=== PATIENT | female | born 1975 | race American Indian/Alaskan Native ===

== ENCOUNTER 2016-11-18 15:18 | Emergency (ER) | payer OTHER ==
[2016-11-18 16:04] VITALS: BP 152/85
[2016-11-18 16:37] LABS: Basophils % (Auto) 1.2 % (0.0-1.8); Eosinophils % (Auto) 4.1 % (0.0-4.3); Hematocrit 39.4 % (30.3-42.9); Hemoglobin 12.7 gm/dl (10.1-14.3); Mean Corpuscular HGB Conc 32 % (30-34); Mean Corpuscular Hemoglobin 27 pg (28-32); Mean Corpuscular Volume 84 fl (79-97); Platelet Count 192 K/mm3 (140-440); Red Blood Count 4.71 M/mm3 (3.65-5.03); Red Cell Distribution Width 14.2 % (13.2-15.2); White Blood Count 8.7 K/mm3 (4.5-11.0)
[2016-11-18 16:51] LABS: Anion Gap 16 mmol/L; Blood Urea Nitrogen 12 mg/dL (7-17); Calcium 8.7 mg/dL (8.4-10.2); Carbon Dioxide 27 mmol/L (22-30); Chloride 103.9 mmol/L (98-107); Glucose 110 mg/dL (65-100); Potassium 4.1 mmol/L (3.6-5.0); Sodium 143 mmol/L (137-145)
[2016-11-19] MEDS ORDERED: MORPHINE IM ONE (02:13)
--- NOTE | 2016-11-19 02:23 | Emergency Department Report ---
HPI - General Chief Complaint: Vaginal Bleeding Time Seen by Provider: 11/19/16 02:01 - [facility] HPI: This is a 41-year-old Afro-Wallisian female presents to the emergency department with complaint of a three-day history of heavy menstrual bleeding and lower abdominal/pelvic cramping/pain. Patient has not taken anything for symptoms prior to presentation. She says that the cycle timing is regular but the amount of bleeding and intensity of her discomfort is not. She has a history of previous tubal ligation. 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 No recent travel or sick contacts at home. She denies any dysuria, back pain, fever, nausea or vomiting. ED Past Medical Hx - Past Medical History Previous Medical History?: Yes Additional medical history: thyroid - Surgical History Past Surgical History?: Yes Additional Surgical History: Tubaligation - Social History Smoking Status: Current Every Day Smoker Substance Use Type: Alcohol, Prescribed - Medications Home Medications: Home Medications Medication Instructions Recorded Confirmed Last Taken Type Levothyroxine [Synthroid] 200 mcg PO QAM 11/18/16 11/18/16 11/17/16 History Topiramate [Topamax] 25 mg PO DAILY 11/18/16 11/18/16 Unknown History metroNIDAZOLE [Flagyl] 500 mg PO Q12HR #14 tab 11/19/16 Unknown Rx ED Review of Systems ROS: Stated complaint: HEAVY BLEEDING Other details as noted in HPI Comment: All other systems reviewed and negative Constitutional: denies: chills, fever Eyes: denies: eye pain, eye discharge, vision change ENT: denies: ear pain, throat pain Respiratory: denies: cough, shortness of breath, wheezing Cardiovascular: denies: chest pain, palpitations Gastrointestinal: abdominal pain. denies: nausea, vomiting Genitourinary: other (vaginal bleeding). denies: urgency, dysuria, discharge Musculoskeletal: denies: back pain, joint swelling, arthralgia Skin: denies: rash, lesions Neurological: denies: headache, weakness, paresthesias Physical Exam - Physical Exam Vital Signs: Vital Signs 11/18/16 15:59 Temperature 98.7 F Pulse Rate 85 Respiratory 20 Rate Blood Pressure 152/85 O2 Sat by Pulse 99 Oximetry Physical Exam: GENERAL: The patient is well-developed well-nourished. HEENT: Normocephalic. Atraumatic. Extraocular motions are intact. Patient has moist mucous membranes. Pupils equal reactive to light bilaterally. NECK: Supple. Trachea is midline. CHEST/LUNGS: Clear to auscultation. There is no respiratory distress noted. HEART/CARDIOVASCULAR: Regular. There is no tachycardia. There is no gallop rub or murmur. ABDOMEN: Abdomen is soft, nontender. Unable to reproduce patient's lower abdominal and/or pelvic discomfort to palpation. Patient has normal bowel sounds. There is no abdominal distention. Morbidly obese habitus. SKIN: Skin is warm and dry. NEURO: The patient is awake, alert, and oriented. The patient is cooperative. The patient has no focal neurologic deficits. The patient has normal speech. MUSCULOSKELETAL: There is no tenderness or deformity. There is no limitation range of motion. There is no evidence of acute injury. : There is some maroon-colored blood seen throughout the vaginal vault. Due to the patient's habitus it is very difficult to visualize the cervix. ED Course Vital Signs 11/18/16 15:59 Temperature 98.7 F Pulse Rate 85 Respiratory 20 Rate Blood Pressure 152/85 O2 Sat by Pulse 99 Oximetry ED Medical Decision Making - Lab Data Result diagrams: 11/18/16 16:18 11/18/16 16:18 - Radiology Data Radiology results: report reviewed Transvaginal's ultrasound shows normal-appearing ovaries and uterus. - Medical Decision Making 41-year-old female presents to the emergency department with complaint of 3 day history of lower abdominal intense cramping and heavy vaginal bleeding during her menstrual cycle. Patient's labs have been unremarkable did not show any etiology of the patient's pain. A transvaginal ultrasound was done that does not show any abnormality to the uterus or ovaries. Attempted to do a pelvic examination but the patient's habitus only allowed me to see some blood within the vaginal vault. Patient was given a dose pain medication and is feeling improved. There was no anemia despite the patient's heavy bleeding. The patient is convinced that she has a bacterial vaginosis infection but I am unable to get a wet prep secondary to her habitus. Patient will be placed on some Flagyl and she will be given referrals for HYPOID GEAR GENERATOR for follow-up. She will return to the ER with any worsening of her symptoms or any acute distress. - Differential Diagnosis menorrhagia, dysfunctional uterine bleeding, BV, UTI Critical Care Time: No Critical care attestation.: If time is entered above; I have spent that time in minutes in the direct care of this critically ill patient, excluding procedure time. ED Disposition Clinical Impression: Dysfunctional uterine bleeding Menorrhagia Qualifiers: Menorrahagia type: with regular cycle Qualified Code(s): N92.0 - Excessive and frequent menstruation with regular cycle Disposition: DISCHARGED TO HOME OR SELFCARE Is pt being admited?: No Condition: Stable Instructions: Dysfunctional Uterine Bleeding (ED) Additional Instructions: Please follow-up with an HYPOID GEAR GENERATOR in the next few days. Return to the emergency department with any worsening of her symptoms or any acute distress. I prescribed use some Flagyl to take for your suspected bacterial vaginosis infection. This medication cannot be mixed with alcohol and any quantity or he will have nausea and vomiting. Prescriptions: metroNIDAZOLE [Flagyl] 500 mg PO Q12HR #14 tab Referrals: PRIMARY CAREMD [Primary Care Provider] - 3-5 Days ANDRÉS MAGUIRE MD [Staff Physician] - 3-5 Days ALISTAIR SCHMITZ MD [Staff Physician] - 3-5 Days Forms: Work/School Release Form(ED) Time of Disposition: 04:19
--- NOTE | 2016-11-19 03:27 | Ultrasound Report ---
FINAL REPORT PROCEDURE: US TRANSVAGINAL WITH DOPPLER TECHNIQUE: Real-time transvaginal sonography in multiple planes of the pelvis was performed with image documentation. Grayscale, color flow Doppler imaging and velocity spectral waveform analysis of the ovaries was employed (duplex imaging). CPT 97683 and 46500 HISTORY: Pelvic pain. Dysfunctional uterine bleeding. COMPARISON: No prior studies are available for comparison. FINDINGS: The uterus measures 10.3 x 5.4 x 6.8 centimeters. The endometrium measures 0.72 centimeters. The uterus shows no ultrasound abnormality. There are a few small nonspecific cysts in the cervix. Right ovary measures 3.3 x 1.3 x 1.9 centimeter. The left ovary measures 2.7 x 2.7 x 2.0 centimeter. Both ovaries show no ultrasound abnormality. There is no ultrasound evidence of free fluid in the pelvis. IMPRESSION: 1. The uterus and both ovaries demonstrate no ultrasound abnormality. 2. There are few small nonspecific cysts in the cervix.
--- NOTE | 2016-11-19 03:39 | Ultrasound Report ---
FINAL REPORT PROCEDURE: ULTRASOUND PELVIS TRANSABDOMINAL WITH DOPPLER TECHNIQUE: Real-time transabdominal sonography in multiple planes of the pelvis was performed with image documentation. Grayscale, color flow Doppler imaging and velocity spectral waveform analysis of the ovaries was employed (duplex imaging). CPT 57509 and 96025 HISTORY: Pelvic pain. Dysfunctional uterine bleeding. COMPARISON: No prior studies are available for comparison. FINDINGS: The uterus measures 10.3 x 5.4 x 6.8 centimeters. The endometrium measures 0.72 centimeters. The uterus shows no ultrasound abnormality. There are a few small nonspecific cysts in the cervix. Right ovary measures 3.3 x 1.3 x 1.9 centimeter. The left ovary measures 2.7 x 2.7 x 2.0 centimeter. Both ovaries show no ultrasound abnormality. There is no ultrasound evidence of free fluid in the pelvis. IMPRESSION: 1. The uterus and both ovaries demonstrate no ultrasound abnormality. 2. There are few small nonspecific cysts in the cervix.
== END 2016-11-19 04:20 | disposition home or self-care (01) ==
LOC: ED 15:18
DX: N93.8 Other specified abnormal uterine and vaginal bleeding (principal); N92.0 Excessive and frequent menstruation with regular cycle; F17.200 Nicotine dependence, unspecified, uncomplicated
CPT/HCPCS: 36415; 76830; 76856; 80048; 85025; 86850; 86900; 86901; 96372; 99284; J2270

== ENCOUNTER 2021-05-10 11:29 | Emergency (ER) | payer OTHER ==
[2021-05-10 12:06] VITALS: BP 142/90
[2021-05-10] MEDS ORDERED: INSULIN REGULAR, HUMAN 100 UNITS/1 ML IV ONE (12:16)
[2021-05-10] MEDS ORDERED: SODIUM CHLORIDE 0.9% 1000 ML 2,000 ML IV ONE (12:16)
--- NOTE | 2021-05-10 12:39 | Emergency Department Report ---
ED General Adult HPI - General Chief complaint: Hyperglycemia Stated complaint: DIABETIC/INFECTION Time Seen by Provider: 05/10/21 12:15 Source: patient Mode of arrival: Ambulatory Limitations: No Limitations - History of Present Illness Initial comments: The patient was evaluated in the emergency department for symptoms described in the history of present illness. He/she was evaluated in the context of the global COVID-19 pandemic, which necessitated consideration that the patient might be at risk for infection with the virus that causes COVID-19. Institutional protocols and algorithms that pertain to the evaluation of patients at risk for COVID-19 are in a state of rapid change based on information released by regulatory bodies including the CDC and federal and state organizations. These policies and algorithms were followed during the pat ient's care in the emergency department. Please note that these policies, procedures and recommendations changed on a rapid basis. 46-year-old obese -Italian female with a history of uncontrolled diabetes uncontrolled hypothyroidism presents to the emergency room for right great toe infection for couple of days. Patient states that she has pain to her right great toe and has had drainage. Patient reports that she has had diabetes for a while and just started back taking her medications. She states that she is followed by Patricia Ardon. She reports she is currently taking Me tformin 1000 mg twice daily and levothyroxine 100 mcg. She states that she missed her last appointment with her primary care provider. She denies any fever or chills. Location: right, lower extremity (Great toe) Severity scale (0 -10): 8 Quality: burning, stabbing, sharp Consistency: constant Improves with: none Associated Symptoms: denies other symptoms Treatments Prior to Arrival: none - Related Data Home Medications Medication Instructions Recorded Confirmed Last Taken Levothyroxine (Nf) [Synthroid] 200 mcg PO QAM 11/18/16 05/10/21 11/17/16 Topiramate [Topamax] 25 mg PO DAILY 11/18/16 05/10/21 Unknown Previous Rx's Medication Instructions Recorded Last Taken Type metroNIDAZOLE [Flagyl] 500 mg PO Q12HR #14 tab 11/19/16 Unknown Rx Doxycycline Hyclate [Doxycycline 100 mg PO Q12HR 10 Days #20 tab 05/10/21 Unknown Rx Hyclate TAB] Allergies Allergy/AdvReac Type Severity Reaction Status Date / Time No Known Allergies Allergy Unverified 11/18/16 15:58 ED Review of Systems ROS: Stated complaint: DIABETIC/INFECTION Other details as noted in HPI Comment: All other systems reviewed and negative ED Past Medical Hx - Past Medical History Previous Medical History?: Yes Hx Diabetes: Yes Additional medical history: thyroid - Surgical History Additional Surgical History: Tubaligation - Social History Smoking Status: Current Every Day Smoker Substance Use Type: Alcohol, Prescribed - Medications Home Medications: Home Medications Medication Instructions Recorded Confirmed Last Taken Type Levothyroxine (Nf) [Synthroid] 200 mcg PO QAM 11/18/16 05/10/21 11/17/16 History Topiramate [Topamax] 25 mg PO DAILY 11/18/16 05/10/21 Unknown History metroNIDAZOLE [Flagyl] 500 mg PO Q12HR #14 tab 11/19/16 05/10/21 Unknown Rx Doxycycline Hyclate [Doxycycline 100 mg PO Q12HR 10 Days #20 tab 05/10/21 Unknown Rx Hyclate TAB] ED Physical Exam - General Limitations: No Limitations General appearance: alert, in no apparent distress - Head Head exam: Present: atraumatic, normocephalic - Eye Eye exam: Present: normal appearance - ENT ENT exam: Present: normal external ear exam - Respiratory Respiratory exam: Absent: accessory muscle use - Cardiovascular Cardiovascular Exam: Present: regular rate - Back Exam Back exam: Present: normal inspection - Neurological Exam Neurological exam: Present: alert, oriented X3, normal gait - Psychiatric Psychiatric exam: Present: normal affect, normal mood. Absent: depressed, agitated, suicidal ideation - Skin Skin exam: Present: erythema - Expanded Skin Exam Expanded Type of lesion: Present: abscess Distribution of rash: RLE (Medial cuticle) Description of rash: Present: tenderness, erythematous, swelling, discharge ED Course Vital Signs 05/10/21 05/10/21 11:58 12:02 Temperature 98.0 F Pulse Rate 88 Respiratory 18 18 Rate Blood Pressure 142/90 [Left] O2 Sat by Pulse 100 98 Oximetry ED Medical Decision Making - Lab Data Result diagrams: 05/10/21 12:32 05/10/21 12:32 - Radiology Data Radiology results: report reviewed [facility] [address] [place] [address] XRay Report Signed Patient: YANELIS MARCUS MR#: [id number] : 1975 Acct:[id number] Age/Sex: 46 / F ADM Date: 05/10/21 Loc: ED Attending Dr: Ordering Physician: RODRÍGUEZ MAYFIELD Date of Service: 05/10/21 Procedure(s): XR toe(s) 2+V RT Accession Number(s): [id number] cc: RODRÍGUEZ MAYFIELD Fluoro Time In Minutes: RIGHT TOE(S) 4 VIEW(S) INDICATION / CLINICAL INFORMATION: Wound on great toe concern for osteomyelitis COMPARISON: None available. FINDINGS: BONES / JOINT(S): No acute fracture or subluxation. No significant arthritis. There is no cortical irregularity to the great toe. SOFT TISSUES: No significant abnormality. ADDITIONAL FINDINGS: None. Signer Name: Jem Zuleta DO Signed: 05/10/2021 1:13 PM Workstation Name: [id number] Transcribed By: NS Dictated By: JEM ZULETA DO Electronically Authenticated By: JEM ZULETA DO Signed Date/Time: 05/10/21 131 DD/ 11 TD/TT: Print Cancel - Medical Decision Making 46-year-old obese -Italian female with a history of uncontrolled diabetes uncontrolled hypothyroidism presents to the emergency room for right great toe infection for couple of days. Patient states that she has pain to her right great toe and has had drainage. Patient reports that she has had diabetes for a while and just started back taking her medications. She states that she is followed by Patricia Ardon. She reports she is currently taking Metformin 1000 mg twice daily and levothyroxine 100 mcg. She states that she missed her last appointment with her primary care provider. She denies any fever or chills. Basic labs have been ordered venous pH has been ordered ESR has been ordered an x-ray of great toe has been ordered. Patient is ordered fluids 2000 L of normal saline IV and 10 units of regular insulin IV has been ordered as patient has a blood sugar in the 437. Critical care attestation.: If time is entered above; I have spent that time in minutes in the direct care of this critically ill patient, excluding procedure time. ED Disposition Clinical Impression: Hyperglycemia, Severely overweight, Paronychia due to ingrown nail Disposition: HOME / SELF CARE / HOMELESS Is pt being admited?: No Does the pt Need Aspirin: No Condition: Stable Instructions: Preventing Type 2 Diabetes Mellitus, Hyperglycemia, [id number] Additional Instructions: Complete antibiotics for your paronychia which is an infection of the tissue around the toe nail itself. Please take your diabetic medications. Recommended you check your blood sugar at least twice a day. Prescriptions: Doxycycline Hyclate [Doxycycline Hyclate TAB] 100 mg PO Q12HR 10 Days #20 tab Referrals: PRIMARY CAREMD [Primary Care Provider] - 3-5 Days MARGY DUQUE MD [Staff Physician] - 3-5 Days Forms: Work/School Release Form(ED)
[2021-05-10 12:56] LABS: Basophils # (Auto) 0.1 K/mm3 (0.0-0.1); Basophils % (Auto) 0.9 % (0.0-1.8); Eosinophils # (Auto) 0.1 K/mm3 (0.0-0.4); Eosinophils % (Auto) 0.9 % (0.0-4.3); Hemoglobin 12.6 gm/dl (10.1-14.3); Lymphocytes # (Auto) 2.3 K/mm3 (1.2-5.4); Mean Corpuscular HGB Conc 34 % (30-34); Mean Corpuscular Volume 89 fl (79-97); Monocytes # (Auto) 0.6 K/mm3 (0.0-0.8); Monocytes % (Auto) 7.3 % (0.0-7.3); Platelet Count 144 K/mm3 (140-440); Red Blood Count 4.16 M/mm3 (3.65-5.03); Red Cell Distribution Width 15.7 % (13.2-15.2)
[2021-05-10 13:08] LABS: Albumin 3.9 g/dL (3.9-5); BUN/Creatinine Ratio 11; Blood Urea Nitrogen 12 mg/dL (7-17); Calcium 9.5 mg/dL (8.4-10.2); Hemolysis Index 25
--- NOTE | 2021-05-10 13:18 | XRay Report ---
RIGHT TOE(S) 4 VIEW(S) INDICATION / CLINICAL INFORMATION: Wound on great toe concern for osteomyelitis COMPARISON: None available. FINDINGS: BONES / JOINT(S): No acute fracture or subluxation. No significant arthritis. There is no cortical ir regularity to the great toe. SOFT TISSUES: No significant abnormality. ADDITIONAL FINDINGS: None. Signer Name: Jem Metcalf DO Signed: 05/10/2021 1:13 PM Workstation Name: [id number]
[2021-05-10 13:27] LABS: Erythrocyte Sedimentation Rate 45 mm/Hr (0-20)
[2021-05-10 13:32] LABS: Alanine Aminotransferase < 5 units/L (7-56)
== END 2021-05-10 16:40 | disposition home or self-care (01) ==
LOC: ED 11:29
DX: E11.65 Type 2 diabetes mellitus with hyperglycemia (principal); L60.0 Ingrowing nail; L03.031 Cellulitis of right toe; F17.200 Nicotine dependence, unspecified, uncomplicated; Z98.51 Tubal ligation status; Z72.89 Other problems related to lifestyle; Z79.899 Other long term (current) drug therapy
CPT/HCPCS: 36415; 73660; 80053; 82805; 82962; 85025; 85652; 96361; 96374; 99284; J7030; J1815